=== PATIENT | male | born 1945 | race Caucasian/White ===

== ENCOUNTER 2017-05-16 14:30 | Inpatient (IN) | payer OTHER ==
[~2017-05-16] VITALS: Ht 188 cm; Wt 134.7 kg
[~2017-05-16 14:30] MED LIST: ALPHA-LIPOIC A300 MG PO; AMARYL4 MG PO; AMLODIPINE-BEN1 EAC5 PO; ASPIR 8181 M1 PO; BLOOD PRESSURE PO; CENTRUM SILV1 TABLET PO; ELAVIL25 MG PO; ELAVIL50 MG PO; ELIQUIS5 MG PO; FENOFIBRATE54 M1 PO; GLIMEPIRIDE4 MG PO; GLUCOPHAGE1000 MG PO; HYDROCODON-ACE1 EAC7 PO; KLOR-CON M2020 MEQ PO; LIPITOR80 MG PO; LO-DOSE ASPIRIN81 M2 PO; LOPRESSOR25 MG PO; LOTREL 10/41 CAPSULE PO; METFORMIN HCL1000 MG PO; NAPROXEN CR500 MG PO; NAPROXEN500 MG PO; OXAYDO5 MG PO; PLAVIX75 MG PO; REPAGLINIDE0.5 MG PO; TAMSULOSIN HCL0.4 MG PO; TRAMADOL HCL50 MG PO; TYLENOL REGULA325 MG PO; ULTRAM50 MG PO; VIAGRA50 MG PO
[2017-05-16 17:07] LABS: CHLORIDE 101 mEq/L (99-109); POTASSIUM 4.1 mEq/L (3.7-5.4); SODIUM 136 mEq/L (136-147)
[2017-05-16 17:10] LABS: GLUCOSE 253 mg/dL (70-99)
[2017-05-16 17:11] LABS: ANION GAP 13 MEQ/L (2-14); EOSINOPHIL (%) 0.4 % (0-5); HEMATOCRIT 39.9 % (38.0-50.0); IMMATURE GRANULOCYTE (%) 0.4 % (0.0-0.7); INSTRUMENT ABS NEUTROPHIL CT 5.4 K/uL; LYMPHOCYTE COUNT 1.8 K/uL (1.0-2.8); MCH 22.2 PG (29.0-34.0); MCHC 30.3 G/DL (30.0-36.0); MCV 73.2 FL (86-99); MEAN PLAT.VOLUME 11.6 uM^3 (9.0-12.4); MONOCYTE (%) 7.9 % (3-12); MONOCYTE COUNT 0.6 K/uL (0-0.8); NEUTROPHIL (%) 68.5 % (45-76); NEUTROPHIL COUNT 5.4 K/uL (1.8-6.4); PLATELET COUNT 205 K/uL (156-360); RBC DIS.WIDTH-CV 15.6 % (11.8-14.6); RBC DIS.WIDTH-SD 39.8 % (39-53); RED BLOOD COUNT 5.45 M/uL (4.00-5.50); WHITE BLOOD COUNT 7.8 K/uL (4.1-10.2)
[2017-05-16 17:12] LABS: TOTAL BILIRUBIN 0.5 mg/dL (0.0-1.0)
[2017-05-16 17:13] LABS: ALKALINE PHOSPHATASE 79 IU/L (3-129); GFR ESTIMATE (CALCULATED) > 59 mL/min/
[2017-05-16 17:14] LABS: UREA NITROGEN (BUN) 12 mg/dL (9-23)
[2017-05-16 20:29] VITALS: BP 163/71
[2017-05-16 22:04] LABS: POINT-OF-CARE METER ID UU14117124
[2017-05-17 00:31] VITALS: BP 140/65
[2017-05-17 04:43] VITALS: BP 146/67
[2017-05-17 06:54] LABS: POINT-OF-CARE METER ID UU14117124
[2017-05-17 07:11] LABS: EOSINOPHIL (%) 0.7 % (0-5); HEMATOCRIT 37.5 % (38.0-50.0); IMMATURE GRANULOCYTE (%) 0.3 % (0.0-0.7); INSTRUMENT ABS NEUTROPHIL CT 3.3 K/uL; LYMPHOCYTE COUNT 1.9 K/uL (1.0-2.8); MCH 22.3 PG (29.0-34.0); MCHC 30.1 G/DL (30.0-36.0); MONOCYTE (%) 10.3 % (3-12); MONOCYTE COUNT 0.6 K/uL (0-0.8); NEUTROPHIL (%) 56.4 % (45-76); NEUTROPHIL COUNT 3.3 K/uL (1.8-6.4); PLATELET COUNT 188 K/uL (156-360); RBC DIS.WIDTH-CV 15.7 % (11.8-14.6); RBC DIS.WIDTH-SD 41.5 % (39-53); RED BLOOD COUNT 5.07 M/uL (4.00-5.50); WHITE BLOOD COUNT 5.9 K/uL (4.1-10.2)
[2017-05-17 07:23] VITALS: BP 143/66
[2017-05-17 07:50] LABS: ANION GAP 7 MEQ/L (2-14); CHLORIDE 102 MEQ/L (99-109); GFR ESTIMATE (CALCULATED) > 59 mL/min/; GLUCOSE 256 mg/dL (70-99); POTASSIUM 4.7 MEQ/L (3.7-5.4); SAMPLE HEMOLYSIS CHECK 0; SAMPLE ICTERIC CHECK 0; SAMPLE LIPEMIA CHECK 0; SODIUM 136 MEQ/L (136-147); UREA NITROGEN (BUN) 12 mg/dL (9-23)
[2017-05-17 10:41] VITALS: BP 140/77
[2017-05-17 11:10] LABS: POINT-OF-CARE METER ID UU14208753
[2017-05-17 16:30] VITALS: BP 135/63
[2017-05-17 16:31] LABS: POINT-OF-CARE METER ID UU14117124
[2017-05-17 20:11] VITALS: BP 149/70
[2017-05-17 21:52] LABS: POINT-OF-CARE METER ID UU14208753
[2017-05-18 02:35] VITALS: BP 141/64
[2017-05-18 06:32] LABS: POINT-OF-CARE METER ID UU14188577
[2017-05-18 06:37] VITALS: BP 132/68
[2017-05-18 11:28] LABS: POINT-OF-CARE METER ID UU14117124
[2017-05-18 16:03] VITALS: BP 141/66
[2017-05-18 16:45] LABS: POINT-OF-CARE METER ID UU14188577
[2017-05-18 21:15] LABS: POINT-OF-CARE METER ID UU14208753
[2017-05-18 23:30] VITALS: BP 169/76
[2017-05-19 04:25] VITALS: BP 165/74
[2017-05-19 06:23] LABS: POINT-OF-CARE METER ID UU14208753
[2017-05-19 07:55] VITALS: BP 154/79
[2017-05-19 12:09] LABS: POINT-OF-CARE METER ID UU14208753
[2017-05-19 17:14] LABS: POINT-OF-CARE METER ID UU14117124
[2017-05-19 17:16] VITALS: BP 158/75
[2017-05-19 21:25] LABS: POINT-OF-CARE METER ID UU14208753
[2017-05-19 23:25] VITALS: BP 158/74
[2017-05-20 01:07] LABS: GFR ESTIMATE (CALCULATED) > 59 mL/min/
[2017-05-20 02:36] LABS: VANCOMYCIN, TROUGH 7.4 MCG/ML (10-20)
[2017-05-20 06:23] LABS: MCH 21.7 PG (29.0-34.0); MCHC 29.3 G/DL (30.0-36.0); MCV 74.2 FL (86-99); MEAN PLAT.VOLUME 10.9 uM^3 (9.0-12.4); PLATELET COUNT 218 K/uL (156-360); RBC DIS.WIDTH-CV 15.4 % (11.8-14.6); RBC DIS.WIDTH-SD 40.6 % (39-53); RED BLOOD COUNT 5.39 M/uL (4.00-5.50); WHITE BLOOD COUNT 5.6 K/uL (4.1-10.2)
[2017-05-20 06:29] LABS: ANION GAP 8 MEQ/L (2-14); CHLORIDE 103 MEQ/L (99-109); GFR ESTIMATE (CALCULATED) > 59 mL/min/; GLUCOSE 234 mg/dL (70-99); POTASSIUM 4.3 MEQ/L (3.7-5.4); SAMPLE HEMOLYSIS CHECK 0; SAMPLE ICTERIC CHECK 0; SAMPLE LIPEMIA CHECK 0; SODIUM 138 MEQ/L (136-147); UREA NITROGEN (BUN) 11 mg/dL (9-23)
[2017-05-20 06:49] LABS: POINT-OF-CARE METER ID UU14117124
[2017-05-20 07:50] VITALS: BP 131/67
[2017-05-20] MEDS ORDERED: ZYVOX600 MG PO (08:45)
[2017-05-20] MEDS ORDERED: NOVOLOG MI100 UNIT/3 SC (11:30)
[2017-05-20 12:08] LABS: POINT-OF-CARE METER ID UU14149397
== END 2017-05-20 12:49 | disposition home or self-care (01) | DRG 558 ==
LOC: EME 14:30 → 3EAST 18:22 → EDOF 18:22 → ENRESERV 18:28 → 3EAST 19:47
PROVIDERS: Emergency Medicine; Hospitalist; Internal Medicine
PROC: 0H9KXZZ Drainage of Right Lower Leg Skin, External Approach (ICD-10-PCS; principal; 2017-05-16)
DX: M70.41 Prepatellar bursitis, right knee (principal); L03.115 Cellulitis of right lower limb; E11.65 Type 2 diabetes mellitus with hyperglycemia; L02.415 Cutaneous abscess of right lower limb; E78.5 Hyperlipidemia, unspecified; I25.10 Atherosclerotic heart disease of native coronary artery without angina pectoris; I10 Essential (primary) hypertension; B95.62 Methicillin resistant Staphylococcus aureus infection as the cause of diseases classified elsewhere; Z90.49 Acquired absence of other specified parts of digestive tract; Z95.1 Presence of aortocoronary bypass graft; Z68.38 Body mass index [BMI] 38.0-38.9, adult; Z85.038 Personal history of other malignant neoplasm of large intestine
CPT/HCPCS: 80048; 80053; 80202; 82565; 82948; 83605; 85025; 85027; 86850; 86900; 86901; 87040; 87070; 87075; 87077; 87147; 87186; 87205; 99281; 99285; J0692; J1650; J1815; J2405; J3010; J3370; J7030

== ENCOUNTER 2017-05-23 22:43 | Emergency (ER) | payer OTHER ==
[~2017-05-23] VITALS: Ht 188 cm; Wt 133.2 kg
[~2017-05-23 22:43] MED LIST changes: +NOVOLOG MI100 UNIT/3 SC; +ZYVOX600 MG PO
[2017-05-23 22:46] VITALS: BP 182/84
== END 2017-05-24 00:05 | disposition home or self-care (01) ==
LOC: EME 22:43 → EXP 22:43
DX: L03.115 Cellulitis of right lower limb (principal); B95.62 Methicillin resistant Staphylococcus aureus infection as the cause of diseases classified elsewhere; E11.9 Type 2 diabetes mellitus without complications
CPT/HCPCS: 99281; 99284